=== PATIENT | female | born 1935 | race Caucasian/White ===

== ENCOUNTER → 2016-05-23 | Day surgery (SDC) | payer MEDICARE, BC ==
[~2016-05-23] MED LIST: ALBUTEROL17 GM INH; AMBIEN10 MG PO; ASPIRIN EC81 M1 PO; ASPIRIN81 M1 PO; ASPIRIN81 M2 PO; BISOPROLOL PO; BISOPROLOL/HCTZ1 TA3 PO; CALCIUM + D 6001 TA1 PO; CELEXA PO; CELEXA20 MG PO; COMBIVENT INH14.7 G1 IH; COMBIVENT U/D3 M2; COMBIVENT U/D3 M2 INH; CYANOCOBAL1000 MCG/M INJ; CYMBALTA PO; ENDOCET 5-3251 EACH PO; FISH OIL 1,001000 M1 PO; FLEXERIL10 MG PO; HM FISH OIL 1,1 EACH PO; HYDROCODON-ACE1 EAC7 PO; LASIX PO; LEVAQUIN PO; LIPITOR PO; LOTREL PO; MIRAPEX0.125 MG PO; MIRAPEX0.75 MG PO; NEURONTIN300 MG PO; PRAMIPEXOLE DI0.5 MG PO; PREVACID PO; PREVACID15 M1 PO; SIMVASTATIN40 MG PO; SPIRIVA18 MCG INH; TRAMADOL HCL50 M1 PO; VITAMIN B12-FO1 EACH PO; ZEBETA5 M1 PO; ZEBETA5 MG PO; ZIAC PO; ZIAC1 TAB 2.5/ PO; [UNRECOGNIZED DRUG - CODE]; [UNRECOGNIZED DRUG - OTHER] PO
--- NOTE | ~2016-05-23 | OR ---
Unit #: [id number] #: [id number] Patient: ISAAC CALIXTO [id number] [address] [place], [place] [address] [id number] O MR#: [id number] NAME: ISAAC CALIXTO. ROOM: Date of Procedure: 05/23/2016 Admission Date: 05/23/2016 Surgeon: Paulie Padilla M.D. : 1935 Attending Physician: Hilario Padilla [facility] OPER[facility]IVE NOTE PROCEDURE PERFORMED Caudal epidural steroid injection under x-ray guided needle placement with provider administered conscious sedation. PREOPERATIVE DIAGNOSES 1. Acute lumbar radiculitis. 2. Spinal stenosis, lumbosacral spine. 3. Degenerative joint disease, lumbosacral spine. 4. Degenerative disk disease, lumbosacral spine. INDICATIONS FOR PROCEDURE The patient presents today with longstanding history of chronic lumbar radicular pain secondary to her underlying degenerative processes. She is generally fairly well managed medically with ongoing continuous conservative management. She does however occasionally experience exacerbations, which to date have only responded to epidural steroid injections. Her most recent visit was approximately 3 months ago. Her usual amount of relief is approximately 60% to 80% for 6 to 8 weeks. However, at her most recent visit, we did a caudal attempt epidural steroid injection, past unsuccessful lumbar attempts. The caudal was successful and the patient states it was her best relief ever with approximately 80% for 8 to 10 weeks. However, over the course of the past 2 to 4 weeks, the patient has developed a crescendo pattern and return of her radicular pain consistent with past painful episodes as well as consistent with her previous radiologic studies. She states this pain is broken through and is unresponsive for usual ongoing conservative measures and has begun to negatively impact her activities of daily living. After discussing risks and benefits of proceeding today with a repeat caudal epidural steroid injection, the patient agreed this would be the appropriate course of action. DESCRIPTION OF PROCEDURE She was then taken to the operating room, where she was prepped and draped in a sterile manner. Standard monitors were applied. She was sedated initially with 1 mg of IV Versed and required additional 1 mg of IV Versed throughout the duration of procedure. The caudal epidural space accessed under x-ray guidance with the patient in the prone position. Total x-ray time for this needle placement was 2 seconds. Needle placement was confirmed then to the epidural space with the injection of 2 mL of Omnipaque, which gave us great superior flow. Following successful needle placement confirmation, the patient received an injectate containing 6 mL normal saline and 80 mg of methylprednisolone. She tolerated this procedure well. She was discharged home with followup instructions, which Unit #: [id number] #: [id number] Patient: ISAAC CALIXTO include an offer to return to this clinic as early as 09/05/2016 if we could be of further service to her. Dictated by... Radha Braxton/sean TD: 05/24/2016 01:03 JOB #: [id number] CC: Rylan Santana M.D. [facility] OPERATIVE NOTE Page 1 of 1 X Hilario Padilla MD X PROCEDURE OPERATIVE NOTE
== END | disposition home or self-care (01) ==
LOC: CCSC 10:58
DX: G89.29 Other chronic pain (principal); M51.17 Intervertebral disc disorders with radiculopathy, lumbosacral region; M48.07 Spinal stenosis, lumbosacral region
CPT/HCPCS: J1040; J2250

== ENCOUNTER → 2016-09-03 | Day surgery (SDC) | payer MEDICARE, BC ==
--- NOTE | ~2016-09-03 | OR ---
Unit #: [id number] #: [id number] Patient: ISAAC CALIXTO [id number] [address] [place], [place] [address] [id number] O MR#: [id number] NAME: ISAAC CALIXTO ROOM: Date of Procedure: 09/03/2016 Admission Date: 09/03/2016 Surgeon: Paulie Padilla M.D. : 1935 Attending Physician: Hilario Padilla Primary Care Physician: Hilario Chauhan M.D. [facility] OPERATIVE NOTE PROCEDURE PERFORMED Caudal epidural steroid injection under x-ray guided needle placement with provider administered conscious sedation. PREOPERATIVE DIAGNOSES 1. Acute lumbar radiculitis. 2. Spinal stenosis, lumbosacral spine. 3. Degenerative joint disease, lumbosacral spine. 4. Degenerative disk disease, lumbosacral spine. DESCRIPTION OF PROCEDURE The patient presents today with longstanding history of chronic lumbar radicular pain secondary to her underlying degenerative processes. She is generally fairly well managed medically with ongoing continuous medical therapy; however, she does occasionally have exacerbations, which to date have only responded to epidural steroid injections. She has gotten the best response to the caudal approach which she states gives her 80% to 100% relief for 6 to 8 weeks and some relief for the duration after; however, generally her pattern is that her pain will start advancing in a crescendo pattern at the 6 to 8 weeks point eventually reaching a point at 12 to 14 weeks, where her pain is negative impact on her activities of daily living. She is currently experiencing just such an exacerbation and presents today requesting an epidural steroid injection. After discussing risks and benefits of proceeding today with a caudal approach epidural steroid injection, she agreed this would be the appropriate course of action. DESCRIPTION OF PROCEDURE She was then taken to the operating room, where she was prepped and draped in a sterile manner. Standard monitors were applied. She was sedated with 0.5 mg of IV Versed and the caudal epidural space accessed using loss of resistance technique and x-ray guidance. Needle placement was confirmed with injection of 2 mL of Omnipaque. Total x-ray time for this procedure was 9 seconds. Following successful needle placement confirmation, the patient received an injectate containing 6 mL normal saline and 80 mg of methylprednisolone. She tolerated this procedure well. She was discharged home with followup instructions, which include an offer to return this clinic as early as 12/12/2016 if needed. Dictated by... Paulie Padilla M.D. Unit #: [id number] #: [id number] Patient: ISAAC CALIXTO G/modl TD: 09/03/2016 16:04 JOB #: [id number] CC: Rylan Santana M.D. [facility] OPERATIVE NOTE Page 1 of 1 X Hilario Padilla MD X PROCEDURE OPERATIVE NOTE
== END | disposition home or self-care (01) ==
LOC: CCSC 13:24
DX: G89.29 Other chronic pain (principal); M51.17 Intervertebral disc disorders with radiculopathy, lumbosacral region; M47.27 Other spondylosis with radiculopathy, lumbosacral region; M48.07 Spinal stenosis, lumbosacral region; J44.9 Chronic obstructive pulmonary disease, unspecified; I50.9 Heart failure, unspecified; K21.9 Gastro-esophageal reflux disease without esophagitis; Z88.8 Allergy status to other drugs, medicaments and biological substances; Z79.82 Long term (current) use of aspirin; Z79.891 Long term (current) use of opiate analgesic; Z79.51 Long term (current) use of inhaled steroids; Z79.899 Other long term (current) drug therapy; Z90.710 Acquired absence of both cervix and uterus; Z96.653 Presence of artificial knee joint, bilateral; Z98.41 Cataract extraction status, right eye; Z90.49 Acquired absence of other specified parts of digestive tract; Z90.12 Acquired absence of left breast and nipple; Z98.890 Other specified postprocedural states
CPT/HCPCS: J1040; J2250